=== PATIENT | female | born 1985 | race African-American/Black ===

== ENCOUNTER 2018-02-27 10:51 | Emergency (ER) | payer SELFPAY ==
[2018-02-27] MEDS ORDERED: HYDROcodone/Acetaminophen 10/325 mg Tablet ONE (12:29)
--- NOTE | 2018-02-27 13:19 | RAD ---
RIGHT SHOULDER THREE VIEWS: History: Injury. Right shoulder pain. FINDINGS/IMPRESSION: No acute fracture or dislocation is identified. POS: [facility]
--- NOTE | 2018-02-27 13:55 | RAD ---
PA CHEST AND RIGHT RIB SERIES: Date: 02/27/18 HISTORY: Fall. Right chest pain. Right rib pain. FINDINGS/IMPRESSION: The heart size is normal. The lungs are well expanded without focal areas of consolidation, pneumotho rax, or pleural effusions. No right-sided rib fracture is seen. POS: [facility]
== END 2018-02-27 13:23 | disposition home or self-care (01) ==
LOC: ERS 10:51
DX: S20.211A Contusion of right front wall of thorax, initial encounter (principal); S40.011A Contusion of right shoulder, initial encounter; Z71.6 Tobacco abuse counseling; F17.210 Nicotine dependence, cigarettes, uncomplicated; W10.9XXA Fall (on) (from) unspecified stairs and steps, initial encounter
CPT/HCPCS: 99406

== ENCOUNTER → 2022-08-30 | Day surgery (SDC) | payer BC ==
[2022-08-26 13:36] VITALS: BMI 38.7
[~2022-08-30] MED LIST: Bupivacaine/Epinephrine 0.25% 30 ML VIAL ONE; Dexmedetomidine 200 MCG/2 ML VIAL ONE; fentaNYL PF 100 MCG/2 ML SYRINGE ONE
== END | disposition home or self-care (01) ==
LOC: SDC 06:49
PROVIDERS: ATTEND Surgery
DX: K43.2 Incisional hernia without obstruction or gangrene (principal); Z53.9 Procedure and treatment not carried out, unspecified reason